=== PATIENT | female | born 1960 | race Caucasian/White ===

== ENCOUNTER 2017-07-21 07:47 | Day surgery (SDC) | payer BC ==
[2017-07-21] MEDS ORDERED: fentaNYL 100 MCG/2 ML SDV IV ONE ×3 (07:48→08:51)
[2017-07-21] MEDS ORDERED: Midazolam 1 MG/ML 2 ML SDV IV ONE ×2 (07:48→08:50)
[2017-07-21] MEDS ORDERED: fentaNYL 100 MCG/2 ML SDV ONE (07:59)
[2017-07-21] MEDS ORDERED: Midazolam 1 MG/ML 2 ML SDV ONE (07:59)
[2017-07-21] MEDS ORDERED: Lactated Ringers 1,000 ML IV SCH (08:15)
[2017-07-21 11:53] VITALS: BP 123/70
--- NOTE | 2017-07-21 13:49 | OR ---
DATE: 07/21/2017 PREOPERATIVE DIAGNOSIS: Family history of colon cancer. POSTOPERATIVE DIAGNOSIS: Family history of colon cancer. PROCEDURE: Total colonoscopy. ANESTHESIA: Conscious sedation with IV Versed and fentanyl. SPECIMEN: None. OPERATIVE FINDINGS: Normal colonoscopy. RECOMMENDATION: Followup colonoscopy in 10 years. INDICATION FOR PROCEDURE: This 56-year-old female has a family history of colon cancer. PROCEDURE IN DETAIL: After adequate preparation, a colonoscope was inserted into the rectum. This was easily passed all the way to the cecum. Confirmation of the cecum was made by visualization of the ileocecal valve, visualization of the appendiceal opening, and palpation in the right lower quadrant. A photograph of the appendix opening and ileocecal valve was taken. The bowel prep was good on withdrawal of the scope. No abnormalities were noted. Anal and rectal examinations are also normal. Air was suctioned from the colon, and the scope was removed. [facility] /[id number]
== END 2017-07-21 11:00 | disposition home or self-care (01) ==
LOC: DL.ENDO 07:47
PROVIDERS: ATTEND Surgery
DX: Z12.11 Encounter for screening for malignant neoplasm of colon (principal); Z80.0 Family history of malignant neoplasm of digestive organs; I10 Essential (primary) hypertension; F32.9 Major depressive disorder, single episode, unspecified; Z98.51 Tubal ligation status; F17.200 Nicotine dependence, unspecified, uncomplicated
CPT/HCPCS: 45378; J2250; J3010; J7120